=== PATIENT | female | born 1980 | race Caucasian/White ===

== ENCOUNTER → 2017-08-07 | Day surgery (SDC) | payer OTHER | END | disposition home or self-care (01) | LOC: JRADIR 09:29 | PROVIDERS: ATTEND Internal Medicine Endocrinology, Diabetes & Metabolism | PROC: BG44ZZZ Ultrasonography of Thyroid Gland (ICD-10-PCS; principal; 2017-08-07) | DX: E04.1 Nontoxic single thyroid nodule (principal); Z53.8 Procedure and treatment not carried out for other reasons | CPT/HCPCS: 10022; 76536-TC ==

== ENCOUNTER 2020-08-03 15:32 | Inpatient (IN) | payer OTHER ==
--- OUTSIDE RECORDS SUMMARY | 2020-07-27 12:54 | XMS ---
:1980 Author Organization [facility] Care Team Providers Name Role Phone Chumaceiro Unavailable Unavailable Chumaceiro Unavailable Unavailable Chumaceiro Unavailable Unavailable Chumaceiro Unavailable Unavailable Chumaceiro Unavailable Unavailable Chumaceiro Unavailable Unavailable Chumaceiro Unavailable Unavailable Chumaceiro Unavailable Unavailable SHAWN JIMENEZ, P Unavailable Unavailable Re-disclosure Warning The records that you are about to access may contain information from federally- assisted alcohol or drug abuse programs. If such information is present, then the following federally mandated warning applies: This information has been disclosed to you from records protected by federal confidentiality rules (42 CFR part 2). The federal rules prohibit you from making any further disclosure of this information unless further disclosure is expressly permitted by the written consent of the person to whom it pertains or as otherwise permitted by 42 CFR part 2. A general authorization for the release of medical or other information is NOT sufficient for this purpose. The Federal rules restrict any use of the information to criminally investigate or prosecute any alcohol or drug abuse patient.The records that you are about to access may contain highly sensitive health information, the redisclosure of which is protected by Article 27-F of the [facility] Public Health law. If you continue you may haveaccess to information: Regarding HIV / AIDS; Provided by facilities licensed or operated by the [facility] Office of Mental Health; or Provided by the [facility] Office for People With Developmental Disabilities. If such information is present, then the following [facility] mandated warning applies: This information has been disclosed to you from confidential records which are protected by state law. State law prohibits you from making any further disclosure of this information without the specific written consent of the person to whom it pertains, or as otherwise permitted by law. Any unauthorized further disclosure in violation of state law may result in a fine or snf sentence or both. A general authorization for the release of medical or other information is NOT sufficient authorization for further disclosure. Encounters Encounter Providers Location Date Indications Data Source(s ) Attender: Diego 06/29/2020 [facility] ([facility] 12:00:00 [facility], [facility]) EDT Office Attender: Diego 06/29/2020 12:00:00 AM EDT [facility] ([facility], ) Office Attender: Diego 06/29/2020 12:00:00 AM EDT [facility] ([facility], ) Office Attender: Diego 06/29/2020 12:00:00 AM EDT [facility] ([facility], ) Office Attender: Diego 06/29/2020 12:00:00 AM EDT [facility] ([facility], ) Office Attender: Diego 06/29/2020 12:00:00 AM EDT [facility] ([facility], ) Office Outpatient Attender: ALPA 06/27/2020 02:00:00 PM Z71.3 [facility] SHAWN MDReferrer: EDT - 06/27/2020 [facility] ALPA ESCOBAR MD 02:40:00 PM EDT Z71.3 Patient discharged. Outpatient Attender: ALPA 06/13/2020 02:00:00 PM Z71.3 [facility] SHAWN MDReferrer: EDT Hospit al of [facility] ALPA ESCOBAR MD Z71.3 Outpatient 03/13/2019 09:02:00 AM EDT THYROID N ODULE [facility] THYROID NODULE Medications Medication Brand Start Product Dose Route Administrative Pharmacy vivian Indications Reaction Description Data Name Date Form Instructions Instructions Source(s) Metformin METFOR 06/29/ TABLET 0 complet METFOR MIN [facility] (St hydrochlori MIN:86 2019 ed [facility] de 500 MG 1007 12:00: Medical, Oral Tablet 00 AM PC) METFORMIN:8 EDT 23646 Trazodone TRAZOD 06/29/ TABLET 0 complet TRAZOD ONE [facility] (St Hydrochlori ONE:85 2019 ed [facility] de 100 MG 6373 12:00: Medical, Oral Tablet 00 AM PC) TRAZODONE:8 EDT 97837 Levothyroxi LEVOTH 06/29/ TABLET 0 complet LEVO THYROXIN [facility] (St ne Sodium YROXIN 2019 ed E [facility] 0.1 MG Oral E:8922 12:00: Medi dank, Tablet 46 00 AM PC) LEVOTHYROXI EDT [id number] Insurance Providers Payer name Policy type Policy ID Covered Covered alliance party's Policy P alia / Coverage alliance party ID relationship to [place] [employer] ormation type martinez AETNA [id number] 1 [id number] AETNA O [id number] AETNA [id number] SO [id number] AETNA [id number] SP [id number] AETNA [id number] AETNA [id number] AETNA O [id number] [place] [id number] HEALTHCARE HMO Problems, Conditions, and Diagnoses Code Display Name Description Problem Type Effective Data Sour ce(s) Dates E66.8 Other obesity OTHER OBESITY Problem 06/29/2020 [facility] ( St 12:00:00 AM [facility], ) R53.83 Other fatigue OTHER FATIGUE Problem 06/29/2020 [facility] G47.09 Other insomnia OTHER INSOMNIA Problem 06/29/2020 [facility] (St 12:00:00 AM [facility], ) Z01.818 Encounter for ENCOUNTER FOR Problem 06/29/2020 [facility] ( St other OTHER 12:00:00 AM [facility] preprocedural PREPROCEDURAL EDT Medical, ) examination EXAMINATION Z00.01 Encounter for ENCOUNTER FOR Problem 06/29/2020 MED[facility] ( St general adult GENERAL ADULT [facility]00:[facility], ) examination with EXAMINATION WITH abnormal findings ABNORMAL FINDINGS E03.9 Hypothyroidism, HYPOTHYROIDISM, Problem 06/29/2020 MEDG EN (St unspecified UNSPECIFIED 12:00:00 AM [facility], ) R73.09 Other abnormal OTHER ABNORMAL Diagnosis 06/27/2020 [facility] glucose GLUCOSE 08:23:00 AM [facility] EDT [facility] E66.01 Morbid (severe) MORBID (SEVERE) Diagnosis 06/27/2020 [facility] obesity due to OBESITY DUE TO 08:23:00 AM [facility] excess calories EXCESS CALORIES EDT [facility]osp ital 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 09:02:00 AM Hospital goiter EDT Surgeries/Procedures Procedure Description Date Indications Data Source(s) Documentation of current 06/29/2020 [facility] ([facility] medications (procedure) 12:00:00 AM EDT [facility], ) ECG ROUTINE ECG W/LEAST 06/29/2020 [facility] ([facility] 12 LDS W/I&R 12:00:00 AM [facility], ) COLLECTION VENOUS BLOOD 06/29/2020 MED[facility] EN ([facility] VENIPUNCTURE 12:00:00 AM [facility], ) Social History Code Duration Value Status Description Data Source(s ) Smoking 06/29/2020 non smoker occ completed non smoker occ etoh M EDGEN ([facility] 12:00:00 AM ED etoh Medical, ) Smoking 06/29/2020 Unknown if ever completed Unknown if ever [facility] ([facility] 12:00:00 AM EDT smoked smoked Medical, ) Vital Signs ID Date Data Source UNK Name Value Range Interpretation Code Description Data Source(s) Body mass index 41.8 kg/m2 41.8 kg/m2 [facility] ([facility] (BMI) [Ratio] [facility], ) Diastolic blood 82 mm[Hg] 82 mm[Hg] [facility] ([facility] pressure [facility] Systolic blood 128 mm[Hg] 128 mm[Hg] [facility] ([facility], ) Body weight 275 lb 275 lb [facility] ([facility], ) Body height 68 in 68 in [facility] ([facility])
[2020-07-29 11:11] VITALS: BMI 41.2
--- NOTE | 2020-08-03 11:42 | HP ---
Admitting History and Physical - Primary Care Physician PCP: Diego Cruz - Admission Chief Complaint: Morbid Obesity History of Present Illness: Patient with morbid obesity for many years despite multiple attempts at dietary weight loss History Source: Patient Limitations to Obtaining History: No Limitations - Past Medical History Reproductive: Yes: Polycystic Ovary Syndrome ...LMP: 07/29/20 ...: No Endocrine: Yes: Hypothyroidism - Smoking History Smoking history: Never smoked Have you smoked in the past 12 months: No - Alcohol/Substance Use Hx Alcohol Use: Yes (SOCIALLY) History of Substance Use: reports: None - Social History Usual Living Arrangement: Yes: With Spouse ADL: Independent History of Recent Travel: No Home Medications - Allergies Allergies/Adverse Reactions: Allergies Allergy/AdvReac Type Severity Reaction Status Date / Time No Known Allergies Allergy Verified 12/13/14 16:49 - Home Medications Home Medications: Ambulatory Orders traZODone HCL [Desyrel -] 300 mg PO HS 12/14/14 Levothyroxine [Synthroid -] 100 mcg PO DAILY 07/29/20 Liothyronine Sodium [Cytomel -] 5 mcg PO DAILY 07/29/20 Metformin HCl [Glucophage] 500 mg PO BID 07/29/20 Family Medical History Family History: Denies Review of Systems - Review of Systems Respiratory: reports: Exercise Intolerance Physical Examination Vital Signs: Vital Signs Temperature 98.6 F 08/03/20 10:59 Pulse Rate 80 08/03/20 10:59 Respiratory Rate 18 08/03/20 10:59 Blood Pressure 152/91 08/03/20 10:59 O2 Sat by Pulse Oximetry (%) 98 08/03/20 10:59 Constitutional: Yes: Well Nourished Eyes: Yes: WNL HENT: Yes: WNL Neck: Yes: WNL Cardiovascular: Yes: WNL Respiratory: Yes: WNL Gastrointestinal: Yes: Abdomen, Obese Renal/: Yes: WNL Musculoskeletal: Yes: WNL Extremities: Yes: WNL Edema: No Problem List - Problems (1) Morbid obesity due to excess calories Code(s): E66.01 - MORBID (SEVERE) OBESITY DUE TO EXCESS CALORIES Assessment/Plan P- OR for Vertical Sleeve Gastrectomy
--- NOTE | 2020-08-03 13:59 | OP ---
Operative Note - Note: Operative Date: 08/03/20 Pre-Operative Diagnosis: Morbid Obesity Operation: Laparoscopic Vertical Sleeve Gastrectomy. Wedge Biopsy of left lobe of liver. Diagnostic Laparoscopy Findings: Greater curve sleeve gastrectomy performed with #[address] Wedge biopsy taken of enlarged left lobe of liver Post-Operative Diagnosis: Same as Pre-op (Hepatomegaly) Surgeon: Derek Walsh Speech Teacher: Andrew García Anesthesia: General Specimens Removed: Greater curve of stomach. Wedge biopsy of left lobe of liver Estimated Blood Loss (mls): 30 Operative Report Dictated: Yes
[2020-08-03] MEDS: METOCLOPRAMIDE HCL INJECTION 10 MG/2 ML VIAL IVPUSH SCH ×2 (14:05→20:52)
[2020-08-03 14:47] LABS: HEMATOCRIT 36.6 % (32.4-45.2); HEMOGLOBIN 11.9 GM/dl (10.7-15.3); MCH 28.5 pg (25.7-33.7); MCHC 32.6 g/dl (32.0-36.0); MEAN CELL VOLUME 87.5 fl (80-96); MEAN PLT VOLUME 10.8 fl (7.5-11.1); PLATELET COUNT 199 K/MM3 (134-434); RBC 4.18 M/mm3 (3.60-5.2); RDW 13.9 % (11.6-15.6); WHITE BLOOD COUNT 10.3 K/mm3 (4.0-10.8)
[2020-08-03 14:54] LABS: ALBUMIN 3.9 g/dl (3.4-5.0); BILIRUBIN,TOTAL 0.6 mg/dl (0.2-1); CALCIUM 8.5 mg/dl (8.5-10); CREATININE 0.7 mg/dl (0.55-1.3); POTASSIUM 4.2 mmol/L (3.5-5.1); TOT PROT 6.9 g/dl (6.4-8.2)
--- NOTE | 2020-08-03 15:03 | SURG ---
Surgery Identification Clerk Note Identification Clerk: Andrew García PA-C (Suzy) Date of Service: 08/03/20 Diagnosis: morbid obesity Procedure: Laparoscopic Vertical Sleeve Gastrectomy. Wedge Biopsy of left lobe of liver. Diagnostic Laparoscopy I was present for the entirety of the operative procedure. For further detail, please refer to operative report.
[~2020-08-03 15:32] MED LIST: BUPIVACAINE HCL/PF 0.25% (2.5MG/ML) 10 ML VIAL IJ ONE; BUPIVACAINE HCL/PF 0.25% (2.5MG/ML) 10 ML VIAL ONE; FAMOTIDINE 20 MG PREMIXED IVPB IVPB ONE; FAMOTIDINE 20 MG/50 ML IVPB 20 MG/50 ML MG IVPB ONE; GUM MASTIC/STORAX/MSAL/ALCOHOL 1 DRP DROPSBTL MC ONE; HYDROmorphone HCL CARPU-JECT 1 MG/1 ML DISP.SYRIN IVPUSH PRN; HYDROmorphone HCL/PF 1 MG/ML VIAL ONE; LACTATED RINGERS SOLUTION 1,000 ML IV SCH; METOCLOPRAMIDE HCL INJECTION 10 MG/2 ML VIAL ONE; MIDAZOLAM HCL 2 MG/2 ML SINGLE DOSE VIAL ONE; NEOSTIGMINE METHYLSULFATE 0.5 MG/ML - 10 ML MDV ONE; ONDANSETRON 4 MG/2 ML VIAL IVPUSH PRN; PROPOFOL 20 ML ONE; ROCURONIUM BROMIDE 50 MG/5 ML SYRINGE ONE; SUCCINYLCHOLINE CHLORIDE 200 MG/10 ML SYRINGE ONE; fentaNYL CITRATE 250 MCG/5 ML VIAL ONE
[2020-08-03] MEDS: SODIUM CHLORIDE 1,000 ML IV SCH (16:13)
[2020-08-03] MEDS: ACETAMINOPHEN 1000 MG/100 ML VIAL (NON FORMULARY) IVPB PRN (16:31)
--- NOTE | 2020-08-03 19:12 | OP ---
DATE OF OPERATION: 08/03/2020 PREOPERATIVE DIAGNOSIS: Morbid obesity. POSTOPERATIVE DIAGNOSIS: 1. Morbid obesity. 2. Hepatomegaly. PROCEDURE PERFORMED: 1. Laparoscopic vertical sleeve gastrectomy. 2. Wedge biopsy of left lobe of liver. 3. Diagnostic laparoscopy. 4. Oversewing of gastric staple line. OPERATING SURGEON: Derek Walsh MD. POKER PROP PLAYER: EDNA Schumacher. ANESTHESIA: General. OPERATIVE PROCEDURE: The patient was brought into the operating room, placed on the OR table in the supine position. All precautions were taken initially including padding for the back and the feet, and Venodyne boots were placed on both lower extremities. At that point, the abdomen was prepped and draped in the usual manner. A Veress needle was placed in the left upper quadrant, and a pneumoperitoneum was established. Under direct vision with the laparoscopic camera, a number 5 bladeless trocar was placed in the left upper quadrant; through that trocar, laparoscopic camera was placed. Under direct vision, a number 15 bladeless trocar was placed in the midline in a supraumbilical position followed by a number 5 bladeless trocar in the right upper quadrant and number 5 bladeless trocar below the left costal margin. A Ralph liver retractor was then placed in the epigastrium to retract the left lobe of the liver. It was noted the left lobe was extremely enlarged, and it was difficult to retract completely, and took many maneuvers with the liver retractor. The patient was then placed in 20-degree reverse Trendelenburg position by Anesthesia. The pylorus was noted on the distal stomach, and from that area 6 cm were measured proximally. Here, the operating surgeon lifted the stomach toward the anterior abdominal wall as the credentialing assistant surgeon retracted the gastrocolic ligament inferiorly. The Ligasure device used to dissect the gastrocolic ligament and the short gastric vessel off the greater curve of the stomach. This continued progressively in a superior and vertical direction until the final short gastric between the superior pole of the spleen and the proximal fundus was divided. At this juncture, Anesthesia advanced a number 36 bougie into the distal stomach. With the bougie held along the lesser curvature, a series of georgette were performed with the first 2 being black load georgette 6 cm in length along the bougie. This was followed by a series of purple load georgette also 6 cm in length and also along the bougie. When the final staple was fired in the left upper quadrant and the greater curve was now completely detached from the lesser curve. It should be noted that prior to firing georgette, both the anterior and posterior gomez were checked that they were equal and the area of the esophagogastric junction approximately 1 to 1.5 cm serosa remained on the anterior and posterior surfaces. At this juncture, Anesthesia inserted air in the bougie to distend the stomach while saline was placed around the staple line. After Anesthesia injected air to show there was full distention of the stomach, showed no signs of obstruction and no leaks were noted. There were a couple areas of minor bleeding or oozing, and before that the entire staple line was run with the Endo Stitch. This began superiorly or proximally at the proximal fundus and continued all the way down to the antrum distally. When it was completed, no further bleeding was noted. Surgicel was placed in the area for further hemostasis. Attention was now directed to the enlarged left lobe of the liver. The LigaSure device was used to take a triangular shaped biopsy through the liver capsule and in the parenchyma off the inferior edge of the left lobe of the lobe. This was sent as a specimen to pathology along with the resected greater curve. At this point, the number 15 trocar site in the middle was closed with the Endo Close device to prevent internal hernia and prevent bleeding. Under direct vision, all trocars were removed and pneumoperitoneum released. All trocar sites injected with 0.25% Marcaine, and the number 15 trocar was closed with 3-0 Vicryl in the subcutaneous tissue, and then all trocar sites were closed with 4-0 Biosyn in subcuticular fashion. Dressings were applied, patient awoken from anesthesia and transferred out of the operation room to the recovery room in stable condition. ANESTHESIA: Anesthesia in this case was general. SURGEON: Derek Walsh MD. POKER PROP PLAYER: EDNA Schumacher. EXPECTED BLOOD LOSS: 30 mL. DISPOSITION: Patient was transferred to recovery room in stable condition. Pankaj MELENDREZ/[id number]
[2020-08-03] MEDS: FAMOTIDINE 20 MG/50 ML IVPB 20 MG/50 ML MG IVPB SCH (21:25)
[2020-08-03] MEDS: HYDROmorphone HCL 0.5 MG/0.5 ML SYRINGE IVPB PRN (21:25)
[2020-08-04] MEDS: METOCLOPRAMIDE HCL INJECTION 10 MG/2 ML VIAL IVPUSH SCH ×3 (01:00→13:51)
[2020-08-04] MEDS: HYDROmorphone HCL 0.5 MG/0.5 ML SYRINGE IVPB PRN ×2 (01:00→05:10)
[2020-08-04] MEDS: ACETAMINOPHEN 1000 MG/100 ML VIAL (NON FORMULARY) IVPB PRN (08:30)
[2020-08-04] MEDS: FAMOTIDINE 20 MG/50 ML IVPB 20 MG/50 ML MG IVPB SCH (09:24)
[2020-08-04 09:58] LABS: HEMATOCRIT 31.5 % (32.4-45.2); HEMOGLOBIN 10.4 GM/dl (10.7-15.3); MCH 28.9 pg (25.7-33.7); MEAN CELL VOLUME 87.6 fl (80-96); MEAN PLT VOLUME 10.7 fl (7.5-11.1); PLATELET COUNT 213 K/MM3 (134-434); RBC 3.59 M/mm3 (3.60-5.2); RDW 13.8 % (11.6-15.6); WHITE BLOOD COUNT 10.6 K/mm3 (4.0-10.8)
[2020-08-04] MEDS: HYDROmorphone HCL/PF 1 MG/ML VIAL IVPB PRN ×2 (11:39→16:00)
[2020-08-04 13:20] LABS: ALBUMIN 3.4 g/dl (3.4-5.0); BILIRUBIN,TOTAL 0.7 mg/dl (0.2-1); CALCIUM 7.8 mg/dl (8.5-10); CREATININE 0.6 mg/dl (0.55-1.3); POTASSIUM 3.9 mmol/L (3.5-5.1); TOT PROT 5.9 g/dl (6.4-8.2)
[2020-08-04] MEDS: SODIUM CHLORIDE 1,000 ML IV SCH (13:52)
[2020-08-04] MEDS ORDERED: FLU VACCINE (FLULAVAL) PF 60 MCG/0.5 ML SYRINGE 2020-2021 IM ONE (14:00)
--- NOTE | 2020-08-04 16:19 | PN ---
Progress Note (short form) - Note Progress Note: POD#1 Afebrile; VSS Pt doing well No nausea, no vomiting Tolerating PO clear liquids- 2 oz PO TID P/E- Eyes- conjunctivae-pink Abd- all trocar sites clean, dry UGI- no leak, no obstruction WBC-10.6 H/H- 10.4/31.5 P- PO clear liquids- 2 oz PO TID D/C pt home Problem List - Problems (1) Morbid obesity due to excess calories Code(s): E66.01 - MORBID (SEVERE) OBESITY DUE TO EXCESS CALORIES
[2020-08-04 16:32] VITALS: TEMP 98.9
[2020-08-04 16:35] VITALS: BP 120/60; PULSE 78
--- NOTE | 2020-08-09 13:01 | PATH ---
Surgical Pathology Report Patient Name: NIESHA GUIDRY Med. Rec. #: [id number] /Age/Gender: 1980 (Age: 39) / F Account: [id number] Location: COUNTS INCLUDE 234 BEDS AT THE [facility] MED-SURG Taken: 08/03/2020 Received: 08/03/2020 Reported: 08/09/2020 Physicians: Derek Walsh M.D. Specimen(s) Received A: GREATER CURVATURE STOMACH B: LIVER BIOPSY Clinical History Morbid obesity Final Diagnosis A. GREATER CURVATURE, STOMACH, LAPAROSCOPIC GASTRIC SLEEVE EXCISION: PORTION OF STOMACH SHOWING MILD CHRONIC MUCOSAL INFLAMMATION. IMMUNOSTAIN IS NEGATIVE FOR H. PYLORI ORGANISMS. B. LIVER, BIOPSY: LIVER SHOWING MINIMAL STEATOSIS (< 1%). TRICHROME STAIN SHOWS NO APPRECIABLE INCREASE IN FIBROSIS. IRON STAIN SHOWS NO INCREASE IN IRON DEPOSITS. Electronically Signed Xenia Howard M.D. Gross Description A. Received in formalin, labeled "greater curvature of stomach," is a 63 gram, 15.5 x 4.0 x 3.7 cm. portion of stomach with a stapled margin of resection. The serosa is carvalho-hollis with minimal attached fat. The mucosa is carvalho-pink with focally flattened folds. No mucosal masses are identified. Civil Estimator sections are submitted in one cassette. B. Received in formalin labeled "liver biopsy," is a 2.6 x 0.8 x 0.5 cm carvalho portion of soft tissue, consistent with a liver biopsy. The specimen is bisected and entirely submitted in one cassette. /08/04/2020 saudi08/04/2020
== END 2020-08-04 17:40 | disposition home or self-care (01) | DRG 621 ==
LOC: FASUSAT 15:32 → FM/S 15:56
PROVIDERS: ADMIT Surgery; ATTEND Surgery
PROC: 0DB64Z3 Excision of Stomach, Percutaneous Endoscopic Approach, Vertical (ICD-10-PCS; principal; 2020-08-03 12:06)
PROC: 0FB23ZX Excision of Left Lobe Liver, Percutaneous Approach, Diagnostic (ICD-10-PCS; 2020-08-03 12:06)
DX: E66.01 Morbid (severe) obesity due to excess calories (principal); Z68.41 Body mass index [BMI] 40.0-44.9, adult; R16.0 Hepatomegaly, not elsewhere classified; E03.9 Hypothyroidism, unspecified
CPT/HCPCS: 36415; 74240-TC-FY; 80053; 84703; 85027; 86850; 86900; 86901; 88305-TC; 94760; J0131

== ENCOUNTER 2022-03-05 05:57 | Day surgery (SDC) | payer SELFPAY ==
[2022-03-05 07:02] VITALS: BMI 30.2
[2022-03-05] MEDS ORDERED: BUPIVACAINE HCL/PF 0.25% (2.5MG/ML) 10 ML VIAL ONE (07:19)
[2022-03-05] MEDS ORDERED: EPINEPHrine/PF 1 MG/1 ML (1:1,000) AMPULE ONE (07:19)
[2022-03-05] MEDS ORDERED: BACITRACIN 15 GM TUBE TOPICAL OINTMENT ONE (07:20)
[2022-03-05] MEDS ORDERED: BUPIVACAINE HCL/PF 2.5 MG/ML - 30 ML VIAL IJ ONE (07:20)
[2022-03-05] MEDS ORDERED: LIDOCAINE HCL 1%, 10 MG/ML (20ML VIAL) ONE (07:20)
[2022-03-05] MEDS ORDERED: BUPIVACAINE LIPOSOME/PF (EXPAREL) 266 MG/20 ML VIAL ONE (07:21)
[2022-03-05] MEDS ORDERED: PROPOFOL 20 ML ONE ×2 (07:29→13:45)
[2022-03-05] MEDS ORDERED: fentaNYL CITRATE 250 MCG/5 ML VIAL ONE ×3 (07:29→09:36)
[2022-03-05] MEDS ORDERED: MIDAZOLAM HCL 2 MG/2 ML SINGLE DOSE VIAL ONE (07:30)
[2022-03-05] MEDS ORDERED: ROCURONIUM BROMIDE 50 MG/5 ML SYRINGE ONE ×2 (07:30→11:17)
[2022-03-05] MEDS ORDERED: SODIUM CHLORIDE 0.9% P/F 10 ML VIAL IJ ONE ×2 (07:36→10:38)
[2022-03-05] MEDS ORDERED: ceFAZolin SODIUM 1 GM VIAL ONE ×3 (07:36→17:07)
[2022-03-05] MEDS ORDERED: GLYCOPYRROLATE 0.2 MG/1 ML VIAL ONE ×2 (07:36→13:44)
[2022-03-05] MEDS ORDERED: SEVOFLURANE 250 ML BTL ONE (07:36)
[2022-03-05] MEDS ORDERED: PROMETHAZINE HCL 25 MG/1 ML VIAL IVPB PRN (07:45)
[2022-03-05] MEDS ORDERED: LACTATED RINGERS SOLUTION 1,000 ML IV SCH ×3 (07:45→15:00)
[2022-03-05] MEDS ORDERED: DEXAMETHASONE SOD PHOSPHATE 4 MG/1 ML VIAL IVPUSH PRN (07:45)
[2022-03-05] MEDS ORDERED: ONDANSETRON 4 MG/2 ML VIAL IVPUSH PRN ×3 (07:45→14:53)
[2022-03-05] MEDS ORDERED: PROMETHAZINE HCL 25 MG/1 ML VIAL IVPUSH PRN ×2 (07:45→14:53)
[2022-03-05] MEDS ORDERED: HYDROmorphone *PCA* 10MG/50ML DISP.SYRIN PCA SCH (07:45)
[2022-03-05] MEDS ORDERED: HEPARIN NA (PORCINE) 5,000 UNITS/ML 1ML VIAL ONE (07:46)
[2022-03-05] MEDS ORDERED: LIDOCAINE HCL/PF 2% SDV 5ML VIAL ONE (08:13)
[2022-03-05] MEDS ORDERED: ONDANSETRON 4 MG/2 ML VIAL ONE ×2 (08:13→13:44)
[2022-03-05] MEDS ORDERED: DEXAMETHASONE SOD PHOSPHATE 4 MG/1 ML VIAL ONE ×2 (08:13→13:44)
[2022-03-05] MEDS ORDERED: KETOROLAC TROMETHAMINE 30 MG/1 ML VIAL ONE (13:44)
[2022-03-05] MEDS ORDERED: NEOSTIGMINE METHYLSULFATE 0.5 MG/1 ML - 10 ML MDV ONE (13:44)
[2022-03-05] MEDS ORDERED: ACETAMINOPHEN INJECTION 100 ML IVPB ONE (14:32)
[2022-03-05] MEDS: ACETAMINOPHEN 1000 MG/100 ML BAG IVPB ONE ×2 (14:35→19:08)
[2022-03-05] MEDS ORDERED: morphine SULFATE 4 MG/ML VIAL IVPUSH PRN (14:48)
[2022-03-05] MEDS ORDERED: ONDANSETRON 4 MG/2 ML VIAL IVPB PRN (14:48)
[2022-03-05] MEDS ORDERED: DEXTROSE 5%-WATER - 50 ML IVPB ONE (17:07)
[2022-03-05] MEDS: CEFAZOLIN 1 GM in DEXTROSE 5%-WATER - 50 ML IVPB SCH (17:10)
[2022-03-05] MEDS: oxyCODONE HCL 5 MG TABLET PO PRN ×2 (17:11→21:55)
[2022-03-05] MEDS: BACITRACIN 15 GM TUBE TOPICAL OINTMENT TP SCH (20:32)
[2022-03-05] MEDS ORDERED: traZODone HCL 100 MG TABLET (FP) PO SCH (22:00)
[2022-03-06] MEDS: BACITRACIN 15 GM TUBE TOPICAL OINTMENT TP SCH ×2 (00:30→05:29)
[2022-03-06] MEDS ORDERED: DEXTROSE 5%-WATER - 50 ML IVPB ONE ×2 (01:16→09:29)
[2022-03-06] MEDS ORDERED: ceFAZolin SODIUM 1 GM VIAL ONE ×2 (01:16→09:29)
[2022-03-06] MEDS: CEFAZOLIN 1 GM in DEXTROSE 5%-WATER - 50 ML IVPB SCH ×2 (01:19→09:31)
[2022-03-06] MEDS: oxyCODONE HCL 5 MG TABLET PO PRN ×3 (01:30→10:42)
[2022-03-06] MEDS ORDERED: ACETAMINOPHEN 500 MG TABLET (FP) PO ONE (06:25)
[2022-03-06 06:53] VITALS: PULSE 75
[2022-03-06] MEDS ORDERED: LEVOTHYROXINE NA 100 MCG TABLET (FP) PO SCH (07:00)
[2022-03-06] MEDS ORDERED: LACTATED RINGERS SOLUTION 1,000 ML/1,000 ML INFUS.BAG IV STA (07:59)
[2022-03-06] MEDS ORDERED: HEPARIN NA (PORCINE) 5,000 UNITS/ML 1ML VIAL SQ SCH (08:00)
[2022-03-06 08:24] LABS: HEMATOCRIT 28.1 % (32.4-45.2); HEMOGLOBIN 9.4 G/dL (10.7-15.3); MCH 31.6 pg (25.7-33.7); MCHC 33.3 g/dl (32.0-36.0); MEAN PLT VOLUME 8.7 fl (7.5-11.1); PLATELET COUNT 185.8 10^3/uL (134-434); RBC 2.96 10^6/uL (3.60-5.2); RDW 13.6 % (11.6-15.6); WHITE BLOOD COUNT 9.2 10^3/uL (4.0-10.8)
[2022-03-06] MEDS ORDERED: LIOTHYRONINE SODIUM 5 MCG TABLET PO SCH (10:00)
[2022-03-06] MEDS ORDERED: PATIENT'S OWN MEDICATION (NON-FORMULARY) (Ferrous Fumarate/Ascorbic Acid [Ferro-Sequels 65 PO SCH (10:00)
[2022-03-06 10:44] VITALS: BP 114/78; TEMP 97.6
== END 2022-03-06 11:13 | disposition home or self-care (01) ==
LOC: FASUSAT 05:57 → FM/S 15:47 → FASUSAT 03-06 11:13
PROVIDERS: ATTEND Plastic Surgery
PROC: 0J0L3ZZ Alteration of Right Upper Leg Subcutaneous Tissue and Fascia, Percutaneous Approach (ICD-10-PCS; 2022-03-05)
PROC: 0J080ZZ Alteration of Abdomen Subcutaneous Tissue and Fascia, Open Approach (ICD-10-PCS; principal; 2022-03-05 08:41)
PROC: 0J0M3ZZ Alteration of Left Upper Leg Subcutaneous Tissue and Fascia, Percutaneous Approach (ICD-10-PCS; 2022-03-05 08:41)
DX: M95.8 Other specified acquired deformities of musculoskeletal system (principal); R63.4 Abnormal weight loss
CPT/HCPCS: 36415; 81025; 85027; 94760; J1644